=== PATIENT | female | born 1995 | race Caucasian/White ===

== ENCOUNTER 2018-08-07 03:55 | Day surgery (SDC) | payer BC, OTHER ==
[~2018-08-07] VITALS: Ht 157.5 cm; Wt 70.3 kg
--- NOTE | ~2018-08-07 | O ---
[facility] [place] [address] [place] [address] OPERATIVE REPORT Name: CHAITANYA BEASLEY Room #: 150-2 [facility] M.R.#: [id number] Admission: 08/07/18 ������������������ Attend Phys: Say Rutherford MD Discharge: ������������������ Date of : [birth year] Report #: [id number] THIS REPORT FOR: //name// CC: [facility] physician/PCP Say Rutherford DATE OF SERVICE: 08/07/2018 PREOPERATIVE DIAGNOSES: Chronic tonsillitis with tonsil and adenoid hypertrophy. POSTOPERATIVE DIAGNOSES: Chronic tonsillitis with tonsil and adenoid hypertrophy. OPERATIVE PROCEDURE: Tonsillectomy and adenoidectomy. ANESTHESIA: General endotracheal. DESCRIPTION OF PROCEDURE: The patient was taken to the operating room and placed in supine position. General anesthesia was induced by endotracheal intubation. Once adequate general anesthesia was obtained, the patient was draped in a sterile manner. A Arvind-Kirby mouth gag was placed in the patient's mouth, and the tongue was deviated upward. Red rubber catheters were placed through the nose and nasopharynx and out the oropharynx and oral cavity to elevate the soft palate and the nasopharynx was visualized indirectly using a mirror. The adenoid was hypertrophied. Adenoidectomy was performed by placing the adenoid curette at the base of the vomer and sweeping downward. The adenoid was removed and sent to pathology. Nasopharyngeal packing was placed. The right tonsil was grasped and deviated towards midline. An incision was placed in the anterior tonsillar pillar using the Bovie electrocautery and a plane between tonsillar capsule and tonsillar fossa was established. Dissection was carried out in this plane using the Bovie and hemostasis was achieved during the dissection. Dissection was carried out from superior to inferior. The inferior pole was incised, posterior tonsillar mucosa was incised. Tonsil was removed and sent to pathology. Left tonsil was removed in exactly the same manner. The area was then irrigated with normal saline. Hemostasis was verified in the tonsillar beds. The nasopharyngeal packing was removed. The nasopharynx was irrigated. There was adequate hemostasis in the nasopharynx as well. The throat pack, mouth gag and red rubber catheters were all removed. The patient tolerated the procedure well. Blood loss approximately 20 mL. The patient was awoken and taken to the recovery room in stable condition for postoperative monitoring. ��������������������������������������������� ���������������������������������������� By: ��������������������������������������������� 0814 0949 Say Rutherford MD /nt
[~2018-08-07 03:55] MED LIST: LEXAPRO20 MG PO
[2018-08-07 07:00] VITALS: BP 127/92
--- NOTE | 2018-08-07 08:22 | H ---
[facility] [place] [place] [address] HISTORY AND PHYSICAL Name: CHAITANYA BEASLEY Room #: 150-2 [facility]..#: [id number] Admission: 08/07/18 ������������������ Attend Phys: Say Rutherford MD Discharge: ������������������ Date of : 89 Report #: [id number] THIS REPORT FOR: //name// CC: [facility] physician/PCP Say Rutherford DATE OF SERVICE: 08/07/2018 DATE OF PROCEDURE: 08/07/2018 HISTORY OF PRESENT ILLNESS: The patient has been having problems with her tonsils over the last several years, at least 3-4 times a year. She has severe sore throat with swelling of her tonsils that necessitated a course of antibiotics each time; however, she is negative for strep on throat culture. PAST MEDICAL HISTORY: Otherwise, not significant. MEDICATIONS: She is on no medications on a regular basis. ALLERGIES: No known drug allergies. PHYSICAL EXAMINATION: She has allergic appearing nasal mucosa. Her tonsils are 3+ enlarged with deep crypt and purulence on them. She had redness posteriorly on the posterior tonsillar pillar. She had upper cervical adenopathy. IMPRESSION: Tonsil and probable adenoid hypertrophy with chronic tonsillitis and acute tonsillitis. PLAN: Tonsillectomy and possible adenoidectomy. ��������������������������������������������� <ELECTRONICALLY SIGNED> ���������������������������������������� By: Say Rutherford MD ��������������������������������������������� 08/07/18 0822 1738 1745 Say Rutherford MD /maame
[2018-08-07 08:25] VITALS: BP 127/92
--- NOTE | 2018-08-08 17:07 | PATH ---
[facility] [address] [place] [address] PATHOLOGY RPT PROCEDURE Name: LEYDI LAMAR Room #: [facility] M.R.#: [id number] ������������������ Admission: 08/07/18 ������������������ Date of : 89 Discharge: 08/07/18 Report #: [id number] Path Case #: [id number] [facility] Accession Number: [id number] . 01 Material submitted: . PART A: RIGHT TONSIL AND ADENOID PART B: LEFT TONSIL . 01 Clinical history: . Chronic tonsillectomy, adenoid hypertrophy . 02 Diagnosis: A. Right tonsil and adenoid, tonsillectomy and adenoidectomy: - Acutely inflamed epithelium overlying lymphoid tissue with reactive hyperplasia. . B. Tonsil, left tonsil, tonsillectomy: - Acutely inflamed epithelium overlying lymphoid tissue with reactive hyperplasia. (IUV:pit 08/08/2018) QTP/08/08/2018 . 02 Electronically signed: . Citlaly Manrique MD, Pathologist NPI- [id number] . 01 Gross description: . A. The specimen is received in formalin, labeled "Leydi Lamar, right tonsil and adenoid" and consists of a 8 g pink-gutierres tonsil measuring 3.4 x 2.7 x 2.0 cm. Sectioning reveals crypts filled with yellow-gutierres friable material. Also received is a segment of adenoid tissue measuring 1.9 x 1.4 x 0.6 cm. Brim Curler sections are submitted in A1. . B. The specimen is received in formalin, labeled "Leydi Lamar, left tonsil" and consists of a 6 g pink-gutierres tonsil measuring 3.1 x 2.0 x 1.5 cm. Sectioning reveals crypts filled with yellow-gutierres friable material and a new accounts banking representative section is submitted in B1. (SDY; 08/07/2018) SYU/SYU . 02 Pathologist provided ICD-10: J03.90, J35.1 . 02 CPT . 512026, 501155 Specimen Comment: A courtesy copy of this report has been sent to Specimen Comment: [phone][place] [address] PATHOLOGY RPT PROCEDURE Name: LEYDI LAMAR Room #: DEP [facility]..#: [id number] ������������������ Admission: 08/07/18 ������������������ Date of : 89 Discharge: 08/07/18 Report #: [id number] Path Case #: [id number] Specimen Comment: Report sent to Performed at: [address], [place], [place] [id number] MD Mick Willett MD Phone: [phone] Performed at: [address] [id number] MD Citlaly Manrique MD Phone: [phone]
== END 2018-08-07 10:30 | disposition home or self-care (01) ==
LOC: OR 03:55 → TBA 03:55 → OR 10:30
DX: J35.01 Chronic tonsillitis (principal); J03.90 Acute tonsillitis, unspecified; J35.3 Hypertrophy of tonsils with hypertrophy of adenoids; Z98.890 Other specified postprocedural states; Z87.891 Personal history of nicotine dependence
CPT/HCPCS: 50010; 50101; 62110; 62900; 70005